=== PATIENT | female | born 1965 | race Caucasian/White ===

== ENCOUNTER → 2021-02-12 | Outpatient (CLI) | payer OTHER ==
--- NOTE | 2021-02-16 08:49 | MM ---
Reason for exam: screening (asymptomatic). History: Patient is postmenopausal. Physical Findings: A clinical breast exam by your physician is recommended on an annual basis and results should be correlated with mammographic findings. MG 3D Screening Mammo W/Cad Bilateral CC and MLO view(s) were taken. No prior studies available for comparison. There are scattered fibroglandular densities. There is an asymmetry in the lateral right breast at middle depth on CC view only with possible distortion. ASSESSMENT: Incomplete: need additional imaging evaluation, BI-RAD 0 RECOMMENDATION: Special view mammogram of the right breast. If lesion persists on supplemental views, image directed ultrasound is recommended. [facility] will attempt to contact patient to return for supplemental views and ultrasound if indicated.
== END | disposition home or self-care (01) ==
LOC: RADMAMWWP 15:53 → MERGE 15:53
PROVIDERS: ATTEND Family Medicine
DX: Z12.31 Encounter for screening mammogram for malignant neoplasm of breast (principal); Z78.0 Asymptomatic menopausal state
CPT/HCPCS: 77063; 77067

== ENCOUNTER → 2021-02-19 | Outpatient (CLI) | payer OTHER ==
--- NOTE | 2021-02-19 08:39 | USB ---
EXAMINATION TYPE: US breast workup limited RT DATE OF EXAM: 02/19/2021 COMPARISON: Mammogram same date CLINICAL HISTORY: r92.8 abnormal mammogram. Findings: The right breast was scanned with ultrasound from 8 11:00 and in the retroareolar region and axillary tail. No ultrasound correlate for the right upper outer asymmetry is seen on mammogram at middle depth. Rig ht diagnostic mammogram is recommended in 6 months. IMPRESSION: No ultrasound correlate for the right upper outer asymmetry is seen on mammogram at middle depth. Rig ht diagnostic mammogram is recommended in 6 months. BI-RADS 3, probably benign.
--- NOTE | 2021-02-19 10:58 | MM ---
Reason for exam: additional evaluation requested from abnormal screening. Last mammogram was performed 11 years and 6 months ago. History: Family history of breast cancer in grandmother and breast cancer in 2 aunts. Physical Findings: Nurse did not find any significant physical abnormalities on exam. MG 3D Work Up W/Cad RT Spot compression CC, LM, and CCRL view(s) were taken of the right breast. Prior study comparison: August 26, 2009, bilateral digital screening mammogram. May 22, 2007, bilateral screening mammogram w/CAD. There are scattered fibroglandular densities. There is a persistent mass of the right outer slightly upper right breast at middle depth and ultrasound is recommended. These results were verbally communicated with the patient and result sheet given to the patient on 02/19/21. ASSESSMENT: Incomplete: need additional imaging evaluation, BI-RAD 0 RECOMMENDATION: Ultrasound of the right breast.
== END | disposition home or self-care (01) ==
LOC: RADMAMWWP 07:36 → MERGE 07:40
PROVIDERS: ATTEND Family Medicine
DX: R92.8 Other abnormal and inconclusive findings on diagnostic imaging of breast (principal); N63.11 Unspecified lump in the right breast, upper outer quadrant; Z80.3 Family history of malignant neoplasm of breast
CPT/HCPCS: 77061; 77065

== ENCOUNTER → 2021-08-23 | Outpatient (CLI) | payer OTHER ==
--- NOTE | 2021-08-23 14:55 | MM ---
Reason for exam: follow-up at short interval from prior study. Last mammogram was performed 6 months ago. History: Family history of breast cancer in grandmother and breast cancer in 2 aunts. Physical Findings: Nurse did not find any significant physical abnormalities on exam. MG 3D Diag Mammo W/Cad RT CC and MLO view(s) were taken of the right breast. Prior study comparison: February 19, 2021, right breast MG 3d work up w/cad RT. February 12, 2021, bilateral MG 3d screening mammo w/cad. There are scattered fibroglandular densities. No significant new findings when compared with previous films. These results were verbally communicated with the patient and result sheet given to the patient on 08/23/21. ASSESSMENT: Benign, BI-RAD 2 RECOMMENDATION: Return to routine screening mammogram schedule for both breasts. Back on schedule.
== END | disposition home or self-care (01) ==
LOC: RADMAMWWP 13:34
PROVIDERS: ATTEND Family Medicine
DX: N64.89 Other specified disorders of breast (principal); Z80.3 Family history of malignant neoplasm of breast
CPT/HCPCS: 77061; 77065

== ENCOUNTER → 2021-12-09 | Outpatient (CLI) | payer OTHER ==
--- NOTE | 2021-12-09 12:10 | US ---
EXAMINATION TYPE: US gallbladder DATE OF EXAM: 12/09/2021 COMPARISON: 09/14/2018 CLINICAL HISTORY: 56-year-old female R10.11 right upper quadrant pain. TECHNIQUE: Multiple sonographic images of the right upper quadrant were obtained. FINDINGS: EXAM MEASUREMENTS: Liver Length: 18.2 cm Gallbladder Wall: 0.24 cm CBD: 0.38 cm Right Kidney: 11.8 x 6.5 x 4.7 cm [employer] Techn[employer] note: Limited due to gas and patient body habitus. Pancreas: Limited due to gas- tail not well visualized. Liver: Increased echogenicity. Appears enlarged. Gallbladder: Appears anechoic. Evidence for sonographic Lopez's sign: No. CBD: Portions seen appear wnl. Right Kidney: No hydronephrosis or masses seen IMPRESSION: 1. Mild hepatomegaly (18.2 cm) with at least moderate hepatic steatosis. 2. No gallstones or biliary ductal dilatation.
== END | disposition home or self-care (01) ==
LOC: RADUSWWP 08:45
PROVIDERS: ATTEND Family Medicine
DX: K76.0 Fatty (change of) liver, not elsewhere classified (principal); R16.0 Hepatomegaly, not elsewhere classified
CPT/HCPCS: 76705

== ENCOUNTER 2022-02-09 09:50 | Day surgery (SDC) | payer OTHER ==
[2022-02-08 09:39] VITALS: BMI 35.4
[~2022-02-09 09:50] MED LIST: LACTATED RINGERS 1,000 ML IV SCH; LIDOCAINE 1% (10MG/ML) FOR IV START INTRADERMA PRN
[2022-02-09 11:06] VITALS: TEMP 97.3
[2022-02-09] MEDS ORDERED: PROPOFOL 10 MG/ML 20 ML VIAL IV ONE (12:04)
[2022-02-09] MEDS ORDERED: LIDOCAINE 2% INJ 20 MG/ML (2 ML VIAL) ONE (12:04)
--- NOTE | 2022-02-09 12:14 | P.PCN ---
Date of Procedure: 02/09/22 Procedure(s) Performed: BRIEF HISTORY: Patient is a 52-year-old, pleasant, white female scheduled for an upper endoscopy as a part of evaluation of severe epigastric pain for the last 6 months duration.. She has long-standing history of GERD and is on omeprazole 20 mg daily for 2 years. PROCEDURE PERFORMED: Esophagogastroduodenoscopy with biopsy. PREOPERATIVE DIAGNOSIS: Chronic epigastric pain of 6 months duration. IV sedation per anesthesia. PROCEDURE: After informed consent was obtained, the patient was brought into the endoscopy unit. IV sedation was administered by Anesthesia under continuous monitoring. Initially the Olympus GIF-140 video endoscope was inserted into the mouth. Esophagus intubated without any difficulty. It was gradually advanced into the stomach and duodenum and carefully examined. The bulb and the second part of the duodenum appeared normal. Biopsies were done from the duodenum to rule out celiac disease. The scope at this time was withdrawn to the stomach, adequately insufflated with air, and upon careful examination, mucosa of the antrum had mild mottling of the mucosa and biopsies were done from this area. The, body, cardia and the fundus appeared normal. The scope was then withdrawn into the esophagus. The GE junction was located at 39 cm from the incisors. The esophagus appeared normal. There were no erosions or ulcerations seen and the patient tolerated the procedure well. IMPRESSION: 1. Mild gastritis. 2. No evidence of esophagitis or peptic ulcer disease. RECOMMENDATIONS: The findings of this examination were discussed with the patient as well as a family. She was advised to follow with the biopsy results. And increase the Omeprazole 20 mg twice daily for 6 weeks and follow antireflux measures.
[2022-02-09 12:18] VITALS: RESP 16
[2022-02-09 12:32] VITALS: BP 133/83; PULSE 81
== END 2022-02-09 13:15 | disposition home or self-care (01) ==
LOC: ORWHC2ENDO 09:50
PROVIDERS: ATTEND Internal Medicine Gastroenterology
DX: K29.50 Unspecified chronic gastritis without bleeding (principal); G89.29 Other chronic pain; K21.9 Gastro-esophageal reflux disease without esophagitis; D86.0 Sarcoidosis of lung; Z79.899 Other long term (current) drug therapy; Z88.0 Allergy status to penicillin; Z88.2 Allergy status to sulfonamides; Z90.710 Acquired absence of both cervix and uterus
CPT/HCPCS: 88305; 43239; J2704; J2001

== ENCOUNTER → 2022-12-14 | Outpatient (CLI) | payer OTHER ==
--- NOTE | 2022-12-14 13:06 | MM ---
Reason for Exam: Screening (asymptomatic). Last mammogram was performed 1 year(s) and 10 month(s) ago. Patient History: Menarche at age 14. First Full-Term at age 21. Hysterectomy at age 40. Postmenopausal. Maternal grandmother had breast cancer. Maternal aunt had breast cancer. Maternal aunt had breast cancer. Risk Values: Martha 5 year model risk: 0.8%. NCI Lifetime model risk: 6.0%. Prior Study Comparison: 02/12/2021 Bilateral Screening Mammogram, [facility]. 02/19/2021 Right Diagnostic Mammogram, [facility]. 08/23/2021 Right Diagnostic Mammogram, [facility]. Tissue Density: There are scattered fibroglandular densities. Findings: Analyzed By CAD. There is no suspicious group of microcalcifications or new suspicious mass in either breast. Chronic nodularity within the right breast. Benign-appearing calcifications within both breasts. Overall Assessment: Benign, BI-RAD 2 Management: Screening Mammogram of both breasts in 1 year. A clinical breast exam by your physician is recommended on an annual basis and results should be correlated with mammographic findings. Electronically signed and approved by: Maurizio Fofana D.O.
[2022-12-14 15:08] LABS: Basophils # (A) 0.05 X 10*3/uL (0.00-0.10); Basophils % (A) 0.7 %; Eosinophils # (A) 0.25 X 10*3/uL (0.04-0.35); Eosinophils % (A) 3.6 %; HCT 42.2 % (37.2-46.3); HGB 13.4 g/dL (12.0-15.0); Immature Grans, Automated 0.6 %; Lymphocytes # (A) 1.84 X 10*3/uL (0.90-5.00); Lymphocytes % (A) 26.6 %; MCH 29.1 pg (27.0-32.0); MCHC 31.8 g/dL (32.0-37.0); MCV 91.7 fL (80.0-97.0); Mean Platelet Volume 9.8 fL (9.5-12.2); Monocytes # (A) 0.66 X 10*3/uL (0.20-1.00); Monocytes % (A) 9.6 %; NRBC Per 100 WBC 0 /100 WBCS (0.0-0.0); Neutrophils # (A) 4.07 X 10*3/uL (1.80-7.70); Neutrophils % (A) 58.9 %; Platelet Count 358 X 10*3/uL (140-440); WBC 6.91 X 10*3/uL (4.50-10.00)
[2022-12-14 15:39] LABS: ALT 33 U/L (8-44); AST 19 U/L (13-35); African American GFR (CKD) 96.2 (60.0-200.0); Albumin 4.3 g/dL (3.8-4.9); Albumin/Globulin Ratio 1.43 (1.60-3.17); Alkaline Phosphatase 58 U/L (41-126); BUN/Creat Ratio 23.13 Ratio (12.00-20.00); Blood Urea Nitrogen 18.5 mg/dL (9.0-27.0); Calcium 9.5 mg/dL (8.7-10.3); Chloride 104 mmol/L (96-109); Glucose 108 mg/dL (70-110); LDL Cholesterol,Calculated 172.8 mg/dL (0.0-131.0); Potassium 4.1 mmol/L (3.5-5.5); Sodium 140 mmol/L (135-145); Total Protein 7.3 g/dL (6.2-8.2); VLDL Calculation 17.78 mg/dL (5.00-40.00)
== END | disposition home or self-care (01) ==
LOC: RADMAMWWP 07:59
PROVIDERS: ATTEND Family Medicine
DX: Z12.31 Encounter for screening mammogram for malignant neoplasm of breast (principal); Z68.42 Body mass index [BMI] 45.0-49.9, adult; E66.01 Morbid (severe) obesity due to excess calories; I10 Essential (primary) hypertension; E03.9 Hypothyroidism, unspecified; Z78.0 Asymptomatic menopausal state; Z80.3 Family history of malignant neoplasm of breast
CPT/HCPCS: 36415; 77063; 77067; 80053; 80061; 84439; 84443; 85025

== ENCOUNTER → 2023-12-23 | Outpatient (CLI) | payer OTHER ==
[2023-12-23 22:43] LABS: Basophils # (A) 0.07 X 10*3/uL (0.00-0.10); Eosinophils # (A) 0.24 X 10*3/uL (0.04-0.35); Eosinophils % (A) 3.4 %; HGB 13.5 g/dL (12.0-15.0); Lymphocytes # (A) 2.04 X 10*3/uL (0.90-5.00); Lymphocytes % (A) 28.9 %; MCH 28.7 pg (27.0-32.0); MCHC 32.1 g/dL (32.0-37.0); MCV 89.4 FL (80.0-97.0); Mean Platelet Volume 9.6 FL (9.5-12.2); Monocytes # (A) 0.72 X 10*3/uL (0.20-1.00); Monocytes % (A) 10.2 %; NRBC Per 100 WBC 0 X 10*3/uL (0.00-0.01); Neutrophils # (A) 3.95 X 10*3/uL (1.80-7.70); Neutrophils % (A) 55.9 %; Platelet Count 375 X 10*3/uL (140-440); RDW 13.4 % (11.5-14.5); WBC 7.06 X 10*3/uL (4.50-10.00)
[2023-12-23 23:11] LABS: ALT 24 U/L (8-44); AST 16 U/L (13-35); Albumin 4.3 g/dL (3.8-4.9); Albumin/Globulin Ratio 1.43 Ratio (1.60-3.17); Alkaline Phosphatase 53 U/L (41-126); Blood Urea Nitrogen 16.1 mg/dL (9.0-27.0); Calcium 9.7 mg/dL (8.7-10.3); Carbon Dioxide 25.7 mmol/L (21.6-31.8); Chloride 103 mmol/L (96-109); Chol/HDL Ratio 4.59 Ratio; Glucose 101 mg/dL (70-110); LDL Cholesterol,Calculated 152.2 mg/dL (0.0-131.0); Potassium 4.2 mmol/L (3.5-5.5); Sodium 140 mmol/L (135-145); Total Bilirubin 0.5 mg/dL (0.3-1.2); Total Protein 7.3 g/dL (6.2-8.2)
== END | disposition home or self-care (01) ==
LOC: LABWHC1 10:12
PROVIDERS: ATTEND Family Medicine
DX: Z00.00 Encounter for general adult medical examination without abnormal findings (principal); E03.9 Hypothyroidism, unspecified; R53.82 Chronic fatigue, unspecified
CPT/HCPCS: 36415; 80053; 80061; 82306; 84443; 85025

== ENCOUNTER → 2025-01-06 | Outpatient (CLI) | payer OTHER ==
[2025-01-06 15:36] LABS: Basophils # (A) 0.05 X 10*3/uL (0.00-0.10); Basophils % (A) 0.6 %; Eosinophils # (A) 0.22 X 10*3/uL (0.04-0.35); Eosinophils % (A) 2.7 %; HCT 41.4 % (37.2-46.3); HGB 13.7 g/dL (12.0-15.0); Lymphocytes # (A) 2.08 X 10*3/uL (0.90-5.00); Lymphocytes % (A) 25.9 %; MCH 29.3 pg (27.0-32.0); MCHC 33.1 g/dL (32.0-37.0); MCV 88.5 FL (80.0-97.0); Mean Platelet Volume 9.3 FL (9.5-12.2); Monocytes # (A) 0.83 X 10*3/uL (0.20-1.00); Monocytes % (A) 10.3 %; NRBC Per 100 WBC 0 X 10*3/uL (0.00-0.01); Neutrophils # (A) 4.82 X 10*3/uL (1.80-7.70); Platelet Count 348 X 10*3/uL (140-440); RBC 4.68 X 10*6/uL (4.10-5.20); RDW 13.3 % (11.5-14.5); WBC 8.04 X 10*3/uL (4.50-10.00)
[2025-01-06 15:46] LABS: ALT 29 U/L (8-44); AST 20 U/L (13-35); Albumin 4.2 g/dL (3.8-4.9); Albumin/Globulin Ratio 1.27 Ratio (1.60-3.17); Alkaline Phosphatase 61 U/L (41-126); Blood Urea Nitrogen 17.4 mg/dL (9.0-27.0); Calcium 9.3 mg/dL (8.7-10.3); Carbon Dioxide 23.8 mmol/L (21.6-31.8); Chloride 101 mmol/L (96-109); Chol/HDL Ratio 4.58 Ratio; Globulin 3.3 g/dL (1.6-3.3); Glucose 103 mg/dL (70-110); LDL Cholesterol,Calculated 159.2 mg/dL (0.0-131.0); Potassium 4.2 mmol/L (3.5-5.5); Sodium 137 mmol/L (135-145); Total Bilirubin 0.4 mg/dL (0.3-1.2); Total Protein 7.5 g/dL (6.2-8.2); VLDL Calculation 15.94 mg/dL (5.00-40.00)
== END | disposition home or self-care (01) ==
LOC: LABWHC1 10:43
PROVIDERS: ATTEND Family Medicine
DX: Z00.00 Encounter for general adult medical examination without abnormal findings (principal); Z13.29 Encounter for screening for other suspected endocrine disorder; Z13.1 Encounter for screening for diabetes mellitus; E66.01 Morbid (severe) obesity due to excess calories; Z79.899 Other long term (current) drug therapy
CPT/HCPCS: 36415; 80053; 80061; 82306; 83036; 84439; 84443; 85025